=== PATIENT | female | born 1955 | race Caucasian/White ===

== ENCOUNTER 2017-03-21 11:36 | Emergency (ER) | payer BC ==
[~2017-03-21] VITALS: Ht 157.5 cm; Wt 88.2 kg
[~2017-03-21 11:36] MED LIST: BUSPAR DIVIDOSE30 MG PO; CYMBALTA 60MG60 MG PO; KLONOPIN 1MG1 MG PO; PREDNISONE20 MG PO; RITALIN LA10 MG PO; [UNRECOGNIZED DRUG - OTHER] TOP
[2017-03-21 11:50] VITALS: BP 142/81; TEMP 98
[2017-03-21 12:13] LABS: PH 5 (5-8); SQUAMOUS EPITHELIAL 0-2 /hpf; URINE APPEARANCE Clear; URINE BACTERIA None Seen /hpf; URINE BILIRUBIN Negative (NEGATIVE); URINE BLOOD Negative (NEGATIVE); URINE COLOR Straw; URINE GLUCOSE Negative (NEGATIVE); URINE KETONE Negative (NEGATIVE); URINE RBC 0-2 /hpf; URINE UROBILINOGEN Negative (NEGATIVE); URINE WBC 0-2 /hpf
[2017-03-21] MEDS ORDERED: CYMBALTA 60MG60 MG PO (12:20)
[2017-03-21] MEDS ORDERED: SINGULAIR 110 MG/TAB PO (12:20)
[2017-03-21] MEDS ORDERED: LUNESTA3 MG PO (12:21)
[2017-03-21] MEDS ORDERED: LIPITOR20 MG PO (12:21)
[2017-03-21] MEDS ORDERED: FLONASEALLERGY NS (12:22)
[2017-03-21] MEDS ORDERED: MASON NATURAL2000 IU (12:22)
[2017-03-21] MEDS ORDERED: BUMEX0.5 MG PO (12:23)
[2017-03-21] MEDS ORDERED: PRINIVIL20 MG PO (12:24)
[2017-03-21] MEDS ORDERED: NAPROSYN500 MG PO (12:24)
[2017-03-21 13:27] LABS: BASO # 0.1 (0.0-0.2); BASO % 0.9 % (0.0-2.0); EOS # 0.1 (0.0-0.7); EOS % 1.5 % (0-4.0); GRAN # 6.7 (1.4-6.5); GRAN % 71.2 % (42.2-75.2); HEMATOCRIT 45.2 % (37.0-47.0); HEMOGLOBIN 15.1 g/dl (12.5-16.0); LYMPH # 1.9 (1.2-3.4); LYMPH % 20.6 % (20.0-51.0); MEAN CELL VOLUME 90 fl (80.0-100.0); MEAN CORPUSCULAR HEMOGLOBIN 30 pg (27.0-31.0); MEAN CORPUSCULAR HGB CONC 33 g/dl (33.0-37.0); MEAN PLATELET VOLUME 11.5 fl (7.4-10.4); MONO # 0.5 (0.1-0.6); MONO % 5.5 % (1.7-9.3); PLATELET COUNT 326 K/mm3 (130-400); RED BLOOD COUNT 5.01 M/mm3 (4.10-5.30); REDCELL DISTRIBUTION WIDTH-CV 12.3 % (11.5-14.5); WHITE BLOOD COUNT 9.4 K/mm3 (4.8-10.8)
[2017-03-21 13:33] LABS: ADJUSTED CALCIUM 9.5 mg/dL (8.4-10.2); ALBUMIN 4.5 gm/dL (3.5-5.0); BILIRUBIN,TOTAL 0.7 mg/dL (0.0-1.0); CALCIUM 9.9 mg/dL (8.4-10.2); CREATININE, serum 0.78 mg/dL (0.52-1.25); POTASSIUM 4.2 mmol/L (3.4-5.0); TOTAL PROTEIN 7.3 gm/dL (6.4-8.2)
[2017-03-21] MEDS ORDERED: NEXIUM 20MG20 MG PO (14:50)
[2017-03-21] MEDS ORDERED: ZOFRAN ODT4 MG PO (15:03)
[2017-03-21 15:07] VITALS: PULSE 71
== END 2017-03-21 15:10 | disposition home or self-care (01) ==
LOC: COL.ER 11:36
PROVIDERS: Physician Assistant
DX: R51 Headache (principal); R11.0 Nausea; I10 Essential (primary) hypertension; K58.9 Irritable bowel syndrome, unspecified; F41.9 Anxiety disorder, unspecified; G89.29 Other chronic pain; M54.9 Dorsalgia, unspecified; M79.7 Fibromyalgia
CPT/HCPCS: J0595; J1885; J2405; J7040